=== PATIENT | male | born 1960 | race Two or more races ===

== ENCOUNTER 2019-12-25 10:41 | Emergency (ER) | payer MEDICAID ==
[~2019-12-25] VITALS: Ht 167.6 cm; Wt 78.5 kg
[2019-12-25] MEDS ORDERED: ASPirin 81 mg TAB PO ONE (11:15)
[2019-12-25 11:54] LABS: Basophils # (auto) 0 10 ^3/uL (0-0.2); Basophils % (auto) 0.4 % (0.0-2.0); Eosinophils # (auto) 0 10 ^3/uL (0-0.8); Eosinophils % (auto) 0.4 % (0.0-7.0); Hematocrit 42.4 % (41.0-53.0); Hemoglobin 14.9 g/dL (13.5-17.5); Lymphocytes # (auto) 0.6 10 ^3/uL (0.4-5.4); Lymphocytes % (auto) 13.5 % (10.0-50.0); Mean Corpuscular Hemoglobin 31.6 pg (28.0-32.0); Mean Corpuscular Hgb Conc. 35.2 g/dL (32.0-36.0); Mean Corpuscular Volume 89.7 fL (80.0-100.0); Monocytes # (auto) 0.3 10 ^3/uL (0-1.3); Monocytes % (auto) 7.8 % (0.0-12.0); Neutrophils # (auto) 3.4 10 ^3/uL (1.6-8.6); Neutrophils % (auto) 77.9 % (37.0-80.0); Platelet Count (auto) 156 10^3/uL (140-450); Red Blood Cells 4.72 10^6/uL (4.5-5.90); White Blood Cell 4.4 10^3/uL (4.4-10.8)
[2019-12-25 12:16] LABS: Albumin 3.8 g/dL (3.4-5.0); Anion Gap 6 (5-15); Blood Urea Nitrogen 17 mg/dL (7-18); Calcium 8.4 mg/dL (8.5-10.1); Carbon Dioxide 25 mmol/L (21-32); Chloride 106 mmol/L (98-107); Glucose 113 mg/dL (74-106); Magnesium 2.7 mg/dL (1.6-2.6); Potassium 3.7 mmol/L (3.5-5.1); Sodium 137 mmol/L (136-145)
[2019-12-25 12:23] LABS: Alanine Aminotransferase 28 U/L (16-61); Alkaline Phosphatase 53 U/L (45-117); Aspartate Aminotransferase 19 U/L (15-37); BUN/Creatinine Ratio 16.5; Bilirubin, Total 0.5 mg/dL (0.2-1.0); GFR African American 95 mL/min; GFR Non-African American 79 mL/min; Total Protein 7.5 g/dL (6.4-8.2)
[2019-12-25 14:48] VITALS: BP 134/64
== END 2019-12-25 16:23 | disposition home or self-care (01) ==
LOC: ER 10:41
DX: R07.89 Other chest pain (principal); F41.9 Anxiety disorder, unspecified; R10.12 Left upper quadrant pain
CPT/HCPCS: 36415; 71046; 74176; 80053; 83735; 84484; 85025; 93005

== ENCOUNTER 2021-06-20 18:06 | Emergency (ER) | payer MEDICAID ==
[~2021-06-20] VITALS: Ht 167.6 cm; Wt 79.8 kg
[2021-06-20 18:29] VITALS: BP 158/82
[2021-06-20 19:23] LABS: Basophils # (auto) 0 10 ^3/uL (0-0.2); Basophils % (auto) 0.7 % (0.0-2.0); Eosinophils # (auto) 0.1 10 ^3/uL (0-0.8); Eosinophils % (auto) 1.1 % (0.0-7.0); Hemoglobin 15.7 g/dL (13.5-17.5); Lymphocytes # (auto) 1.2 10 ^3/uL (0.4-5.4); Lymphocytes % (auto) 20.2 % (10.0-50.0); Mean Corpuscular Hemoglobin 31.2 pg (28.0-32.0); Mean Corpuscular Hgb Conc. 35.7 g/dL (32.0-36.0); Mean Corpuscular Volume 87.5 fL (80.0-100.0); Monocytes # (auto) 0.5 10 ^3/uL (0-1.3); Monocytes % (auto) 8.4 % (0.0-12.0); Neutrophils # (auto) 4.2 10 ^3/uL (1.6-8.6); Neutrophils % (auto) 69.6 % (37.0-80.0); Nucleated Red Blood Cells % 0.2 %; Red Blood Cells 5.02 10^6/uL (4.5-5.90); Red Cell Distribution Width 13.2 % (11.8-14.3)
[2021-06-20 19:55] LABS: Albumin 3.9 g/dL (3.4-5.0); BUN/Creatinine Ratio 15.9
[2021-06-20 19:59] LABS: Bilirubin, Total 0.4 mg/dL (0.2-1.0); Total Protein 8.1 g/dL (6.4-8.2)
[2021-06-20] MEDS ORDERED: DONNATAL 5ml ORAL Elix (BELLADONNA ALK-PHENOBARB) PO ONE (20:15)
[2021-06-20] MEDS ORDERED: LIDOCAINE VISCOUS 2% 15ML UD PO ONE (20:15)
[2021-06-20] MEDS ORDERED: ALUM & MAG HYDROX-SIMETH LIQ(MAALOX) 30 ML PO ONE (20:15)
[2021-06-20] MEDS ORDERED: IOHEXOL 300 MG/ML 100ML BOTTLE IJ ONE (20:20)
[2021-06-20] MEDS ORDERED: IOHEXOL 350 MG/ML 100ML IJ ONE ×2 (20:20→20:34)
[2021-06-20] MEDS ORDERED: SODIUM CHLORIDE 0.9% 1,000 ML IV ONE (22:00)
[2021-06-20 22:55] LABS: Urine Bacteria NONE SEEN /hpf (None Seen); Urine Blood TRACE /uL (Negative); Urine Specific Gravity 1.049 (1.001-1.035); Urine WBC 1 /hpf (0 - 3)
== END 2021-06-20 23:36 | disposition home or self-care (01) ==
LOC: ER 18:06
DX: M79.10 Myalgia, unspecified site (principal); I10 Essential (primary) hypertension; Z20.822 Contact with and (suspected) exposure to COVID-19
CPT/HCPCS: 36415; 74177; 76705; 80053; 81001; 84484; 85025; 87426; 87804; 93005; 99285; Q9967

== ENCOUNTER 2023-01-06 13:38 | Inpatient (IN) | payer MEDICAID ==
[~2023-01-06] VITALS: Ht 167.6 cm; Wt 79.9 kg
[2023-01-06] MEDS ORDERED: ASPirin 325 MG TAB PO ONE (14:00)
[2023-01-06 14:12] LABS: Basophils # (auto) 0 10 ^3/uL (0-0.2); Basophils % (auto) 0.3 % (0.0-2.0); Eosinophils # (auto) 0.1 10 ^3/uL (0-0.8); Eosinophils % (auto) 1.5 % (0.0-7.0); Hematocrit 43.6 % (41.0-53.0); Hemoglobin 14.9 g/dL (13.5-17.5); Lymphocytes # (auto) 1.5 10 ^3/uL (0.4-5.4); Lymphocytes % (auto) 35.2 % (10.0-50.0); Mean Corpuscular Hemoglobin 30.7 pg (28.0-32.0); Mean Corpuscular Hgb Conc. 34.2 g/dL (32.0-36.0); Monocytes # (auto) 0.5 10 ^3/uL (0-1.3); Monocytes % (auto) 10.7 % (0.0-12.0); Neutrophils # (auto) 2.3 10 ^3/uL (1.6-8.6); Neutrophils % (auto) 52.3 % (37.0-80.0); Nucleated Red Blood Cells % 0.2 %; Red Blood Cells 4.85 10^6/uL (4.5-5.90); Red Cell Distribution Width 13.2 % (11.8-14.3); White Blood Cell 4.3 10^3/uL (4.4-10.8)
[2023-01-06 14:28] LABS: INR 1.08 (0.9-1.15); Partial Thromboplastin Time 29.2 SEC (24.5-34.5); Prothrombin Time 11.3 sec (9.3-11.8)
[2023-01-06] MEDS ORDERED: NITROGLYCERIN 0.4 MG SL TAB SL ONE (14:30)
[2023-01-06 14:40] LABS: Urine Bacteria NONE SEEN /hpf (None Seen); Urine Blood Negative /uL (Negative); Urine Clarity Clear (Clear); Urine Color Yellow (Yellow); Urine Protein, UAD Negative (Negative); Urine Specific Gravity 1.025 (1.001-1.035); Urine Urobilinogen Normal (Negative); Urine WBC <1 /hpf (0 - 3)
[2023-01-06 14:42] LABS: Alanine Aminotransferase 28 U/L (7-40); Albumin 4.3 g/dL (3.2-4.8); Alkaline Phosphatase 50 U/L (46-116); Anion Gap 10 (5-15); Aspartate Aminotransferase 22 U/L (13-40); BUN/Creatinine Ratio 13.5 (10.0-20.0); Blood Urea Nitrogen 15 mg/dL (9-23); Carbon Dioxide 27 mmol/L (20-30); Chloride 102 mmol/L (98-107); Glucose 96 mg/dL (74-106); Sodium 139 mmol/L (136-145)
[2023-01-06 14:43] LABS: Bilirubin, Total 1.1 mg/dL (0.2-1.0); Total Protein 7.1 g/dL (5.7-8.2)
[2023-01-06] MEDS ORDERED: ACETAMINOPHEN 325 MG TAB PO PRN (15:00)
[2023-01-06] MEDS ORDERED: MORPHINE SULFATE INJ 2 MG/ml SYRG IV PRN (15:00)
[2023-01-06] MEDS ORDERED: NITROGLYCERIN 0.4 MG SL TAB SL PRN (15:00)
[2023-01-06] MEDS: SODIUM CHLORIDE 0.9% 1,000 ML IV SCH (15:00)
[2023-01-06 15:48] LABS: Triglycerides 57 mg/dL (< 150)
[2023-01-06 15:49] LABS: LDL Cholesterol 53 mg/dL (< 100)
[2023-01-06 15:50] LABS: Cholesterol 97 mg/dL (< 200); HDL Cholesterol 33 mg/dL (40-59)
[2023-01-06 16:36] VITALS: PULSE 53; RESP 18; O2SAT 95
[2023-01-06 19:03] LABS: Amphetamine Screen, Urine Neg (NEGATIVE); Barbiturate Scree,Urine Neg (NEGATIVE); Benzodiazephine Screen, Urine Neg (NEGATIVE); Cannabinoid Screen, Urine Neg (NEGATIVE); Cocaine Screen, Urine Neg (NEGATIVE); Opiate Scree,Urine Neg (NEGATIVE); Phencyclidine Screen, Urine Neg (NEGATIVE)
[2023-01-06 23:02] VITALS: BP 146/66; PULSE 53; RESP 18; TEMP 99.3; O2SAT 98
[2023-01-06] MEDS ORDERED: ASPI325T4 PO (23:58)
[2023-01-06] MEDS ORDERED: LISI-285 PO (23:58)
[2023-01-07] VITALS (7 sets, daily range): BP systolic 118–126; BP diastolic 61–70; PULSE 48–55; RESP 16–20; TEMP 97.4–98; O2SAT 95–98
[2023-01-07 06:50] LABS: Basophils # (auto) 0 10 ^3/uL (0-0.2); Basophils % (auto) 0.4 % (0.0-2.0); Eosinophils # (auto) 0.1 10 ^3/uL (0-0.8); Eosinophils % (auto) 1.7 % (0.0-7.0); Hematocrit 39.7 % (41.0-53.0); Lymphocytes # (auto) 1.4 10 ^3/uL (0.4-5.4); Lymphocytes % (auto) 32.8 % (10.0-50.0); Mean Corpuscular Hemoglobin 31.2 pg (28.0-32.0); Mean Corpuscular Hgb Conc. 35.3 g/dL (32.0-36.0); Mean Corpuscular Volume 88.4 fL (80.0-100.0); Monocytes # (auto) 0.5 10 ^3/uL (0-1.3); Monocytes % (auto) 11.1 % (0.0-12.0); Neutrophils # (auto) 2.3 10 ^3/uL (1.6-8.6); Nucleated Red Blood Cells % 0.1 %; Red Blood Cells 4.49 10^6/uL (4.5-5.90); Red Cell Distribution Width 13.2 % (11.8-14.3); White Blood Cell 4.3 10^3/uL (4.4-10.8)
[2023-01-07 07:10] LABS: Alanine Aminotransferase 20 U/L (7-40); Albumin 3.8 g/dL (3.2-4.8); Alkaline Phosphatase 46 U/L (46-116); Anion Gap 8 (5-15); Aspartate Aminotransferase 18 U/L (13-40); BUN/Creatinine Ratio 13.3 (10.0-20.0); Blood Urea Nitrogen 13 mg/dL (9-23); Calcium 8.6 mg/dL (8.7-10.4); Carbon Dioxide 26 mmol/L (20-30); Chloride 105 mmol/L (98-107); Glucose 89 mg/dL (74-106); Potassium 3.5 mmol/L (3.5-5.1); Sodium 139 mmol/L (136-145); Total Protein 6.4 g/dL (5.7-8.2)
[2023-01-07 07:23] LABS: Bilirubin, Total 0.5 mg/dL (0.2-1.0)
[2023-01-07] MEDS: ASPirin 81 mg TAB PO SCH (09:21)
[2023-01-07] MEDS: SODIUM CHLORIDE 0.9% 1,000 ML IV SCH (09:21)
[2023-01-07 09:30] LABS: Hepatitis B Surface Antigen Negative (Negative)
[2023-01-07 09:51] LABS: Hepatitis C Antibody Negative (Negative)
[2023-01-07] MEDS ORDERED: ENOXAPARIN SOD 40 MG/0.4 ML SYRINGE SC SCH (10:00)
[2023-01-07] MEDS ORDERED: KETOROLAC TROMETH 30 MG/ML 1ML VIAL IV ONE (11:15)
[2023-01-07] MEDS ORDERED: IOHEXOL 300 MG/ML 100ML BOTTLE IJ ONE (11:38)
[2023-01-08] MEDS: SODIUM CHLORIDE 0.9% 1,000 ML IV SCH (00:20)
[2023-01-08 05:00] VITALS: BP 132/68; PULSE 50; RESP 18; TEMP 97.9; O2SAT 99
[2023-01-08 07:56] LABS: Basophils # (auto) 0 10 ^3/uL (0-0.2); Basophils % (auto) 0.5 % (0.0-2.0); Chloride 107 mmol/L (98-107); Eosinophils # (auto) 0.1 10 ^3/uL (0-0.8); Eosinophils % (auto) 1.5 % (0.0-7.0); Hematocrit 41.1 % (41.0-53.0); Hemoglobin 14.3 g/dL (13.5-17.5); Lymphocytes # (auto) 1.3 10 ^3/uL (0.4-5.4); Lymphocytes % (auto) 36.5 % (10.0-50.0); Mean Corpuscular Hemoglobin 31.1 pg (28.0-32.0); Mean Corpuscular Hgb Conc. 34.8 g/dL (32.0-36.0); Mean Corpuscular Volume 89.5 fL (80.0-100.0); Monocytes # (auto) 0.4 10 ^3/uL (0-1.3); Neutrophils # (auto) 1.8 10 ^3/uL (1.6-8.6); Neutrophils % (auto) 51.5 % (37.0-80.0); Potassium 4.1 mmol/L (3.5-5.1); Red Cell Distribution Width 13.3 % (11.8-14.3); Sodium 140 mmol/L (136-145); White Blood Cell 3.6 10^3/uL (4.4-10.8)
[2023-01-08 07:57] LABS: Anion Gap 6 (5-15); Carbon Dioxide 27 mmol/L (20-30)
[2023-01-08 07:58] LABS: Calcium 8.7 mg/dL (8.5-10.1)
[2023-01-08 08:00] VITALS: BP 129/73; PULSE 48; PULSE 52; PULSE 56; RESP 18; RESP 20; TEMP 97.3; O2SAT 98
[2023-01-08 08:02] LABS: BUN/Creatinine Ratio 10.4 (10.0-20.0); Blood Urea Nitrogen 10 mg/dL (9-23); Glucose 96 mg/dL (74-106)
[2023-01-08 08:46] LABS: Erythrocyte Sedimentation Rate 3 mm/hr (0-20)
[2023-01-08] MEDS: ASPirin 81 mg TAB PO SCH (10:50)
[2023-01-08] MEDS ORDERED: KETOROLAC TROMETH 30 MG/ML 1ML VIAL IV ONE (11:30)
[2023-01-08 12:00] VITALS: BP 124/66; PULSE 49; RESP 20; TEMP 97.7; O2SAT 98
[2023-01-08 16:00] VITALS: BP 119/59; PULSE 53; RESP 20; TEMP 97.5; O2SAT 99
[2023-01-08 20:00] VITALS: BP 127/67; PULSE 55; PULSE 60; RESP 18; TEMP 97.6; O2SAT 100
[2023-01-08 22:00] VITALS: BP 127/67; PULSE 60; RESP 100; TEMP 97.6; O2SAT 100
[2023-01-09 05:00] VITALS: BP 129/73; PULSE 73; RESP 20; TEMP 98.3; O2SAT 98
[2023-01-09 08:00] VITALS: PULSE 52; RESP 18; O2SAT 98
[2023-01-09 09:00] VITALS: BP 119/63; PULSE 49; RESP 18; TEMP 97.6; O2SAT 98
[2023-01-09] MEDS: ASPirin 81 mg TAB PO SCH (10:25)
[2023-01-09 12:53] VITALS: BP 131/68; PULSE 58; RESP 18; TEMP 36.4; O2SAT 98
[2023-01-09 13:00] VITALS: BP 121/72; PULSE 54; RESP 18; TEMP 97.6; O2SAT 95
[2023-01-09 16:56] VITALS: BP 150/79; PULSE 62; RESP 18; TEMP 97.7; O2SAT 98
== END 2023-01-09 19:13 | disposition home or self-care (01) | DRG 203 ==
LOC: ER 13:38 → TELE 14:49 → TELE-WESTW 22:39
PROVIDERS: ADMIT Nurse Practitioner Family; ATTEND Internal Medicine
DX: R07.89 Other chest pain (principal); E66.9 Obesity, unspecified; I10 Essential (primary) hypertension; R11.2 Nausea with vomiting, unspecified; Z81.8 Family history of other mental and behavioral disorders; Z83.3 Family history of diabetes mellitus; Z68.28 Body mass index [BMI] 28.0-28.9, adult
CPT/HCPCS: 36415; 71045; 71260; 74177; 78452; 80048; 80053; 80061; 80307; 81001; 83735; 83880; 84443; 84484; 85025; 85379; 85610; 85652; 85730; 86803; 87340; 93005; 93017; 93306; G0378; J1885